=== PATIENT | female | born 1965 | race African-American/Black ===

== ENCOUNTER 2021-01-18 11:11 | Emergency (ER) | payer OTHER ==
[~2021-01-18] VITALS: Ht 167.6 cm; Wt 95.3 kg
--- NOTE | 2021-01-18 11:23 | NUR ---
pt ambulated to bed 04.
[2021-01-18 11:25] VITALS: BP 162/100
--- NOTE | 2021-01-18 11:44 | NUR ---
while cooking last night she grabbed a wooden spoon that had already cracked. pain to rt 4th digit due to splinter, attempted to remove splinter unsuccessfully, more painful post attempts.
[2021-01-18 12:46] VITALS: BP 162/100
--- NOTE | 2021-01-18 12:47 | NUR ---
Patient discharged with v/s stable. Written and verbal after care instructions ABOUT HAND/FOOT FOREGIN BODY given and explained. Patient verbalized understanding. Ambulatory with steady gait. All questions addressed prior to discharge. Advised to follow up with PMD.
== END 2021-01-18 12:47 | disposition home or self-care (01) ==
LOC: MED 11:11
DX: S60.551A Superficial foreign body of right hand, initial encounter (principal); W45.8XXA Other foreign body or object entering through skin, initial encounter; Y93.89 Activity, other specified; Y92.89 Other specified places as the place of occurrence of the external cause; Y99.8 Other external cause status
CPT/HCPCS: 10120; 99284

== ENCOUNTER 2022-03-24 10:30 | Emergency (ER) | payer OTHER ==
[~2022-03-24] VITALS: Ht 170.2 cm; Wt 103.0 kg
[2022-03-24 10:44] VITALS: BP 169/86
--- NOTE | 2022-03-24 10:50 | NUR ---
PT AMB TO BED 10.
--- NOTE | 2022-03-24 11:02 | NUR ---
56 Y/O FEMALE BIB SELF C/O SWELLING AND REDNESS ON THE LEFT FOREARM X2DAYS. PER PT SHE WAS VOLUNTEERING IN [facility] WHEN SHE NOTED SWELLING ON THE AREA. DENIES ANY INSECT/ANIMAL BITE, DENIES ANY CHEMICAL DROP ON AREA. NOTED REDNESS AND SWELLING, MULTIPLE DIFFUSE CLEAR VESICLES CENTRAL TO THE SWELLING. DENIES PAIN, ONLY ITCHING. DENIES ANY SOB/FEVERS. PT STATES THAT A WOUND CARE DOCTOR IN [facility] APPLIED UNKNOWN ATB CREAM ON AREA, ENCIRCLED REDNESS AND SWELLING AND COVERED THE AREA IN TEGADERM. NKA PMH: DENIES
--- NOTE | 2022-03-24 12:15 | NUR ---
ALEX DREW AT BEDSIDE
[2022-03-24] MEDS ORDERED: BACITRACIN OINT 500 UNITS/GM PKT TP ONE (12:20)
[2022-03-24] MEDS ORDERED: CEPH-588 PO (12:30)
[2022-03-24] MEDS ORDERED: LORA10TA PO (12:30)
[2022-03-24] MEDS ORDERED: HYD1C TP (12:30)
[2022-03-24 12:47] VITALS: BP 135/74
--- NOTE | 2022-03-24 12:47 | NUR ---
Patient discharged with v/s stable. Written and verbal after care instructions given and explained. Patient alert, oriented and verbalized understanding of instructions. Ambulatory with steady gait. All questions addressed prior to discharge. ID band removed. Patient advised to follow up with PMD. Rx of KEFLEX, HYDROCORTISONE 1% CREA,, LORATADINE given. Patient educated on indication of medication including possible reaction and side effects. Opportunity to ask questions provided and answered.
== END 2022-03-24 12:47 | disposition home or self-care (01) ==
LOC: MED 10:30
DX: R21 Rash and other nonspecific skin eruption (principal)
CPT/HCPCS: 99283